=== PATIENT | female | born 1960 | race Caucasian/White ===

== ENCOUNTER 2017-08-20 07:59 | Emergency (ER) | payer OTHER ==
[~2017-08-20] VITALS: Ht 172.7 cm; Wt 71.8 kg
[~2017-08-20 07:59] MED LIST: FLEXERIL10 MG PO; KEFLEX500 MG PO; NORCO 5/3251 TABLET PO; VENLAFAXINE HC100 MG PO
[2017-08-20 08:01] VITALS: BP 117/68
[2017-08-20] MEDS ORDERED: NORCO 5/3251 TABLET PO (08:25)
== END 2017-08-20 08:43 | disposition home or self-care (01) ==
LOC: EME 07:59
PROC: 2W3DX1Z Immobilization of Left Lower Arm using Splint (ICD-10-PCS; principal; 2017-08-20)
DX: S52.502A Unspecified fracture of the lower end of left radius, initial encounter for closed fracture (principal); W01.0XXA Fall on same level from slipping, tripping and stumbling without subsequent striking against object, initial encounter; Y93.K1 Activity, walking an animal; F17.200 Nicotine dependence, unspecified, uncomplicated
CPT/HCPCS: 73110; 99281; 99283

== ENCOUNTER 2017-09-09 06:43 | Day surgery (SDC) | payer OTHER ==
[~2017-09-09] VITALS: Ht 172.7 cm; Wt 70.2 kg
[~2017-09-09 06:43] MED LIST changes: +BUSPAR5 MG PO; +CYMBALTA60 MG PO; +HYDROCODON-ACE1 EAC7 PO; +NEURONTIN300 MG PO
== END 2017-09-09 09:32 | disposition home or self-care (01) ==
LOC: PAIN 06:43 → SDC 07:30 → PAIN 09:32
PROC: BR161ZZ Fluoroscopy of Lumbar Facet Joint(s) using Low Osmolar Contrast (ICD-10-PCS; principal; 2017-09-09)
PROC: 3E0T3BZ Introduction of Anesthetic Agent into Peripheral Nerves and Plexi, Percutaneous Approach (ICD-10-PCS; principal; 2017-09-09)
PROC: 3E0T33Z Introduction of Anti-inflammatory into Peripheral Nerves and Plexi, Percutaneous Approach (ICD-10-PCS; principal; 2017-09-09)
DX: M47.816 Spondylosis without myelopathy or radiculopathy, lumbar region (principal); M51.16 Intervertebral disc disorders with radiculopathy, lumbar region; G89.29 Other chronic pain; J44.9 Chronic obstructive pulmonary disease, unspecified; F41.9 Anxiety disorder, unspecified; E78.6 Lipoprotein deficiency; Z79.891 Long term (current) use of opiate analgesic; F17.210 Nicotine dependence, cigarettes, uncomplicated
CPT/HCPCS: J1030; J2250; S0020

== ENCOUNTER 2017-10-21 10:35 | Day surgery (SDC) | payer OTHER ==
[~2017-10-21] VITALS: Ht 172.7 cm; Wt 69.9 kg
[2017-10-21] MEDS ORDERED: PERCOCET 5/31 TABLET PO (11:26)
== END 2017-10-21 12:15 | disposition home or self-care (01) ==
LOC: PAIN 10:35
DX: M47.816 Spondylosis without myelopathy or radiculopathy, lumbar region (principal); M51.36 Other intervertebral disc degeneration, lumbar region; M54.16 Radiculopathy, lumbar region; M99.83 Other biomechanical lesions of lumbar region; F17.200 Nicotine dependence, unspecified, uncomplicated
CPT/HCPCS: J1030; J2250; S0020

== ENCOUNTER 2017-11-23 09:15 | Day surgery (SDC) | payer OTHER ==
[~2017-11-23] VITALS: Ht 172.7 cm; Wt 69.9 kg
[~2017-11-23 09:15] MED LIST changes: +PERCOCET 5/31 TABLET PO
== END 2017-11-23 11:50 | disposition home or self-care (01) ==
LOC: PAIN 09:15 → SDC 10:00 → PAIN 11:50
DX: M47.816 Spondylosis without myelopathy or radiculopathy, lumbar region (principal); M51.16 Intervertebral disc disorders with radiculopathy, lumbar region; M48.061 Spinal stenosis, lumbar region without neurogenic claudication; J44.9 Chronic obstructive pulmonary disease, unspecified; F17.200 Nicotine dependence, unspecified, uncomplicated; Z79.891 Long term (current) use of opiate analgesic
CPT/HCPCS: J1030; J2250; J3010; S0020